=== PATIENT | male | born 1980 | race Caucasian/White ===

== ENCOUNTER 2024-06-26 18:37 | Emergency (ER) | payer OTHER, SELFPAY ==
[2024-06-26 18:47] VITALS: BP 136/88
[2024-06-26 20:12] VITALS: BP 123/66
--- NOTE | 2024-06-26 22:59 | ED.MUSCINJ ---
HPI-Injury
General
Chief Complaint: Musculo-Skeletal Complaint
Source: patient
Exam Limitations: none
Time Seen by Provider: 06/26/24 19:01
Nursing documentation reviewed up to this point in time: agreed with
History of Present Illness-Injury
Is this injury a work related problem?: No
Is pt an associate of [facility]/[place]?: No
Initial Injury comments:
Patient states he snapped his fingers to get his dogs attention and now he is unable to move 3rd finger. He feels that it is dislocated. Incident occurred just TREE [employer]. Brought self to ED
Past History
Past History
ED Past Medical History: GERD, HTN, Other (Pancreatitis, chronic low back pain) and Other (History of opiate abuse)
ED Past Surgical History: Orthopedic (Right knee surgery, right elbow)
Patient has exhibited threatening behavior?: No
Social History
Tobacco: Smoker
Alcohol: Occasional
Drug: Former user
Personal: Single
Living: with family
Employment: Employed
Family History
Family History: Other (Noncontributory)
Review of Systems
Review of Systems
Allergies reviewed?: Yes
All Other Systems: ROS reviewed and negative except as documented in HPI and ROS
Constitutional: Reports no symptoms
Musculoskeletal: Reports joint pain (Unable to straighten right 3rd finger at MCP)
Skin: Reports no symptoms
Neurological: Reports no symptoms
Psychiatric: Reports no symptoms
Musculoskeletal Injury Exam
Musculoskeletal Injury Exam
Right Third Finger:
Pain with Movement?: Moderate
Tender to palpation?: Moderate
Soft tissue swelling?: None
External deformity and angulation?: Moderate
Joint effusion?: None
Contusion?: None
Hematoma-local bleeding into tissue?: None
Strain- Sprain- Tear (Connective tissue injury)?: Moderate
Crepitus with movement?: No
Joint instability?: No
Malalignment/deformity?: No
Range of motion: Limited
Distal skin color and temperature: normal-warm & good color
Capillary Refill: normal
Normal distal neurovascular exam?: Yes
Peripheral Pulses: radial (right): 3+
Phy Exam
General Physical Exam
General Presentation: well appearing and no apparent distress
General age: appears stated age
General Skin: warm and dry
General Habitus: normal
General Mental: alert
Musculoskeletal Exam
Musculoskeletal Exam: neuro vasc intact
Skin Exam
Skin Exam: normal color, warm/dry and no rash
Psychiatric Exam
Psychiatric Exam: normal mood/affect
Injury Course
Orders/Labs/Results
Orders:
Orders
06/26/24 19:09
Hand, Right 3 View [CR Hand - Right Min 3 Views] Urgent
Comment:
Reason For Exam: deformity left 3rd MCP
*Critical Care Note
Total Time (30-74mins, 75-104mins- exclusive of procedures): Not Applicable
Update Note
Update Note:
Digital block with Lidocaine 1% to right 3rd finger. Able to release 'trigger finger' with minimal traction on finger. Now iwth full ROM. He is discharged home, will follow up with ortho. FInger splint applied for comfort.
ED Attending Note
-
Portions of this chart may have been created with voice recognition software.� Occasional wrong word or��sound alike� substitutions may have occurred due to the inherent limitations of voice recognition software.
Discharge Plan
Departure
Patient Disposition: Home (Routine Discharge)
Date of Disposition: 06/26/24
Time of Disposition: 20:02
Patient with high blood pressure during this ER visit?: No
Condition: Good
Covid-19: Not Applicable
Discharge Problem:
Subluxation of finger
Instructions: Muscle and Bone Pain (DC), Ibuprofen
Prescriptions:
No Action
omeprazole 20 MG capsule,delayed release(DR/EC)
10 mg PO DAILY
atenolol 50 MG tablet
50 mg PO DAILY Qty: 20 0RF
nicotine 14 MG patch 24 hour
14 mg transdermal DAILY Qty: 14 0RF
folic acid 1 MG tablet
1 mg PO DAILY Qty: 30 0RF
thiamine HCl (vitamin B1) [Vitamin B-1] 50 MG tablet
50 mg PO DAILY Qty: 30 0RF
ibuprofen 600 MG tablet
600 mg PO QIDPRN PRN (Reason: pain) Qty: 30 0RF
Referrals:
Enrrique Díaz MD [Active] - Next open appointment
Jennifer Abrams PA [Family Provider] -
Interventions
Interventions:
*Risk Screen - Suicide Last Done: 06/26/24 19:20
*General Assessment Last Done: 06/26/24 19:20
*Neglect/Abuse Screening Last Done: 06/26/24 19:20
*ED COVID-19 Vaccine History Last Done: 06/26/24 19:21
*Nursing Disposition Last Done: 06/26/24 20:13
ED-Musculoskeletal Assessment Last Done: 06/26/24 19:15
Discharge Date and Time
Discharge Date/Time: 06/26/24 20:14
Print Language: MEXICAN
== END 2024-06-26 20:14 | disposition home or self-care (01) ==
LOC: EMR 18:37
PROVIDERS: EMERGENCY PHYSICIAN Emergency Medicine; FAMILY PHYSICIAN Physician Assistant
DX: S63.212A Subluxation of metacarpophalangeal joint of right middle finger, initial encounter (principal); X50.1XXA Overexertion from prolonged static or awkward postures, initial encounter; I10 Essential (primary) hypertension; K21.9 Gastro-esophageal reflux disease without esophagitis; F17.200 Nicotine dependence, unspecified, uncomplicated
CPT/HCPCS: 26700; 99283; 73130

== ENCOUNTER 2024-10-16 21:12 | Day surgery (SDC) | payer OTHER, SELFPAY ==
[2024-10-16 16:03] VITALS: BP 135/88
[2024-10-16 16:18] LABS: % Basophils 0.3 % (0-2); % Eosinophils 0.2 % (0-6); % Immature Granulocytes 0.3 % (0-0.5); % Monocytes 3.4 % (1.7-9.3); % Neutrophils 85.8 % (42.2-75.2); Absolute Basophils 0.1 10^3/uL (0-0.2); Absolute Immature Granulocytes 0.1 10^3/uL (0-0.05); Absolute Lymphocytes 1.7 10^3/uL (1.2-3.4); Absolute Monocytes 0.6 10^3/uL (0.1-0.6); Absolute Neutrophils 14.2 10^3/uL (1.4-6.5); Hematocrit 44.8 % (39.0-52.0); Hemoglobin 15.6 g/dL (13.0-18.0); Mean Corp Hgb Conc. 34.8 g/dL (33.0-37.0); Mean Corpuscular Hgb 31.3 pg (27.0-31.0); Mean Corpuscular Volume 89.8 fL (80.0-94.0); Mean Platelet Volume 9.6 fL (7.4-10.4); Nucleated Red Blood Cells % 0 % (-); Platelet Count 266 10^3/uL (130-400); Red Blood Cell Count 4.99 10^6/uL (4.70-6.10); Red Cell Dist. Width 12.1 % (11.5-14.5); White Blood Cell Count 16.6 10^3/uL (4.8-10.8)
[2024-10-16 16:31] LABS: ALT (SGPT) 19 U/L (0-50); AST (SGOT) 21 U/L (17-59); Albumin 4.5 g/dl (3.5-5.0); Alkaline Phosphatase 91 U/L (38-126); Blood Urea Nitrogen 7 mg/dl (9-20); Calcium 9.8 mg/dl (8.4-10.2); Carbon Dioxide 31 mmol/L (22-30); Chloride 100 mmol/L (98-107); Glucose 143 mg/dl (70-99); Lipase 53 U/L (23-300); Potassium 4.7 mmol/L (3.5-5.1); Sodium 137 mmol/L (135-145); Total Bilirubin 0.8 mg/dl (0.2-1.3); Total Protein 7.2 g/dl (6.3-8.2); eGFR > 60.00
--- NOTE | 2024-10-16 16:45 | ED.GENMED ---
History of Present Illness
General
Chief Complaint: Abdominal Pain
Source: patient
Time Seen by Provider: 10/16/24 16:34
History of Present Illness
History of Present Illness:
44-year-old male presents complaining of gradually worsening abdominal pain since this morning. He is nauseous with decreased appetite. The feels better to be curled up in a ball. No urinary symptoms. No fever. No blood in the stool. No other
complaints at this time
Past History
Past History
ED Past Medical History: GERD, HTN, Other (Pancreatitis, chronic low back pain) and Other (History of opiate abuse)
ED Past Surgical History: Orthopedic (Right knee surgery, right elbow)
Patient has exhibited threatening behavior?: No
Social History
Tobacco: Smoker
Alcohol: Occasional
Drug: Former user
Personal: Single
Living: with family
Employment: Employed
Family History
Family History: Other (Noncontributory)
Phy Exam
Physical Exam
Physical Exam:
General: Well-appearing male no acute respiratory distress
HEENT: Normocephalic atraumatic
Heart: Regular rate and rhythm
Lungs: Clear no wheeze
Abdomen soft tender to the right lower quadrant no guarding or rebound normal bowel sounds
Extremities: No cyanosis
Course
Orders/Labs/Results
Orders:
Orders
10/16/24 16:08
Complete Blood Count/With Diff Urgent
Comprehensive Metabolic Panel Urgent
Lipase Urgent
10/16/24 16:39
CT Abd/pelvis W Iv Cont Urgent
Comment:
Reason For Exam: rlq pain
0.9% Sodium Chloride 1000 ml [Nss] 1,000 ml IV BOLUS
Ketorolac [Toradol] 15 mg IV NOW STA
Ondansetron Injectable [Zofran] 4 mg IV NOW STA
10/16/24 19:59
Piperacillin/Tazo 3.375 Gram [Zosyn] 3.375 gram in 50 ml IV NOW
10/16/24 20:12
Ketorolac [Toradol] 15 mg IV NOW STA
Abnormal Lab Results
10/16/24
16:08
WBC 16.6 H 10^3/uL
(4.8-10.8)
MCH 31.3 H pg
(27.0-31.0)
Abs Immat Gran (auto) 0.1 H 10^3/uL
(0-0.05)
Absolute Neuts (auto) 14.2 H 10^3/uL
(1.4-6.5)
Neutrophils % 85.8 H %
(42.2-75.2)
Lymphocytes % 10.0 L %
(20.5-51.1)
Carbon Dioxide 31 H mmol/L
(22-30)
BUN 7 L mg/dl
(9-20)
Glucose 143 H mg/dl
(70-99)
10/16/24 16:08
10/16/24 16:08
Vital Signs
Initial and Last Documented VS:
Initial Vital Signs
Temp Pulse Resp BP Pulse Ox
98.1 F 77 17 135/88 100
10/16/24 16:03 10/16/24 16:03 10/16/24 16:03 10/16/24 16:03 10/16/24 16:03
Last Documented Vital Signs
Temp Pulse Resp BP Pulse Ox
98.1 F 62 18 131/78 98
10/16/24 16:03 10/16/24 18:00 10/16/24 18:00 10/16/24 18:00 10/16/24 18:00
MDM/Problems Addressed
Differential Diagnosis Includes:
Abdominal pain. Consider pancreatitis versus constipation versus appendicitis versus biliary colic
Labs demonstrate leukocytosis with a white blood cell count of 16,000. On exam most tender area is the right lower abdomen. He is nauseous and having trouble tolerating orals. Will order CT with IV only contrast. Toradol Zofran fluids ordered
*Critical Care Note
Total Time (30-74mins, 75-104mins- exclusive of procedures): Not Applicable
Update Note
Update Note:
CT consistent with acute appendicitis. No evidence of rupture or abscess. Chest with general surgery, Dr. Reyes. Will admit to house nurse practitioner under Dr. Reyes. Zosyn ordered
ED Attending Note
-
Portions of this chart may have been created with voice recognition software.� Occasional wrong word or��sound alike� substitutions may have occurred due to the inherent limitations of voice recognition software.
Discharge Plan
Departure
Patient Disposition: Admit
Date of Disposition: 10/16/24
Time of Disposition: 20:12
Presentation/result/management discussed w/ accepting MD/DO: Dr. Reyes
Discharge Problem:
Acute appendicitis
Prescriptions:
No Action
omeprazole 20 MG capsule,delayed release(DR/EC)
10 mg PO DAILY
atenolol 50 MG tablet
50 mg PO DAILY Qty: 20 0RF
nicotine 14 MG patch 24 hour
14 mg transdermal DAILY Qty: 14 0RF
folic acid 1 MG tablet
1 mg PO DAILY Qty: 30 0RF
thiamine HCl (vitamin B1) [Vitamin B-1] 50 MG tablet
50 mg PO DAILY Qty: 30 0RF
ibuprofen 600 MG tablet
600 mg PO QIDPRN PRN (Reason: pain) Qty: 30 0RF
Referrals:
Jennifer Abrams PA [Family Provider] -
Interventions
Interventions:
*Risk Screen - Suicide Last Done: 10/16/24 16:04
*General Assessment Last Done: 10/16/24 16:04
*Neglect/Abuse Screening Last Done: 10/16/24 16:04
*ED- Fall Risk Assessment Last Done: 10/16/24 19:46
*ED COVID-19 Vaccine History Last Done: 10/16/24 16:04
DD-Ddahkd-Upkynkmjar Assessment Last Done: 10/16/24 18:00
Discharge Date and Time
Print Language: KAZAKH
[2024-10-16 16:53] VITALS: BMI 25.7
[2024-10-16] MEDS: ZOFRAN 4 MG IV (17:02)
[2024-10-16] MEDS: TORADOL 15 MG IV ×2 (17:02→20:36)
[2024-10-16] MEDS: NSS 1000 IV ×2 (17:02→22:40)
[2024-10-16 18:00] VITALS: BP 131/78
[2024-10-16] MEDS: ZOSYN 50 IV (20:36)
--- NOTE | 2024-10-16 21:32 | HPS.HSE ---
Addendum entered and electronically signed by Macho Calabrese MD 10/17/24 08:31:
I saw and examined the patient independently.
The Commercial Hvac Service Technician's note was reviewed and I agree with the note, assessment and plan except where noted below.
Comment: This is a 44-year-old male who presents with a 1 day history of right lower quadrant abdominal pain. Exam, imaging, blood work all consistent with acute appendicitis.
Will plan for a laparoscopic appendectomy in the OR today.
N.p.o., IV fluids, IV antibiotics.
Risks/Benefits/Alternatives, expected postoperative course and possible complications (bleeding, infection, injury to surrounding structures, acute/chronic pain) discussed at length. Patient wishes to proceed with surgery. All questions answered.
Consent obtained.
I spent 60 minutes in total for the care of this patient today including direct patient care and counseling, reviewing labs, imaging, coordination of care, as well as documentation.
Original Note:
Family Physician
-
Family Physician: ADRIENNE Huertas
Chief Complaint
-
abdominal pain
History of Present Illness
44 year old male who went to [facility] for coffee this morning at about 0900 and by 1100 he started to feel unwell with vague abdominal pain which became progressively worse until he arrived here about 1500 today. Movement makes pain worse along with
intermittent nausea without vomiting. He relayed to ED about curling up in a ball was helpful for pain relief. Denies WATERS, fever, chills, night sweats, SOB, CP or lower extremity discomfort. PMH includes GERD, HTN, nicotine patch, previoius etoh and
narcotic dependence, pancreatitis (due to etoh in past), chronic lower back pain with hx of right knee and right elbow surgery.
Medical History
Past Medical History
Past Medical History: Reports GERD, HTN and Other (chronic lower back pain, pancreatitis, hx of opiate/etoh abuse)
Past Surgical History: Reports Orthopedic (right elbow and right knee)
Social History
Tobacco: Smoker (reduced amount smoked and uses nicotine patch)
Alcohol: Occasional
Drug: Former User and Narcotics
Personal: Single
Living: With Family
Employment: Employed
Family History
Family History: Not pertinent
Allergies / Home Medications
Allergies reflects when Allergies were last updated in [facility].
Home Medications with original date entered in [facility]
Allergy/Medication List:
Allergies
Allergy/AdvReac Type Severity Reaction Status Date / Time
No Known Allergies Allergy Verified 10/16/24 16:04
Home Medications
omeprazole 20 mg capsule,delayed release 10 mg PO DAILY 04/04/17
atenolol 50 mg tablet 50 mg PO DAILY ##20 04/06/17
folic acid 1 mg tablet 1 mg PO DAILY #30 tabs 10/11/18
nicotine 14 mg/24 hr daily transdermal patch 14 mg transdermal DAILY ##14 10/11/18
thiamine HCl (vitamin B1) 50 mg tablet (Vitamin B-1) 50 mg PO DAILY #30 tabs 10/11/18
ibuprofen 600 mg tablet 600 mg PO QIDPRN PRN pain #30 tabs 12/10/21
Review of Systems
-
A 12 point ROS was completed and negative except as noted: Yes
Constitutional: Reports No Symptoms
EENT: Reports No Symptoms
Respiratory: Reports No Symptoms
Cardiac: Reports No Symptoms
Abdomen/GI: Reports Abdominal Pain and Nausea
: Reports No Symptoms
Musculoskeletal: Reports No Symptoms
Skin: Reports No Symptoms
Neurological: Reports No Symptoms
Endocrine: Reports No Symptoms
Hematologic/Lymphatic: Reports No Symptoms
Psych: Reports No Symptoms
Physical Exam
Vital Signs
Vital Signs
Temp Pulse Resp BP Pulse Ox
98.1 F 62 18 131/78 98
10/16/24 16:03 10/16/24 18:00 10/16/24 18:00 10/16/24 18:00 10/16/24 18:00
Physical Exam
General: Well Developed, Well Nourished, No Apparent Distress, Comfortable and Conversant
HEENT: NormoCephalic, Moist mucous membranes and Atraumatic
Respiratory: Clear and Non Labored Respirations
Cardiac: S1/S2 and Regular Rhythm
Breast: Deferred by me
GI: Soft, Normal Bowel Sounds and Distended
Rectal: Deferred by Provider
Genito-urinary: Clear Urine
Musculoskeletal: No Clubbing, No Cyanosis and No Edema
Skin: Warm and Dry
Neuro: Alert, Oriented, AO x 3, No Motor Deficits and Nonfocal/grossly intact
Hematologic/Lymphatic: No Lymphadenopathy
Psych: Calm
Laboratory Results
-
10/16/24 16:08
10/16/24 16:08
Laboratory Results
Total Bilirubin 0.8 mg/dl (0.2-1.3) 10/16/24 16:08
AST 21 U/L (17-59) 10/16/24 16:08
ALT 19 U/L (0-50) 10/16/24 16:08
Alkaline Phosphatase 91 U/L (38-126) 10/16/24 16:08
Lipase 53 U/L (23-300) 10/16/24 16:08
Data Reviewed
-
Diagnostic Radiology: Report Reviewed by me
Lab Data: Labs Reviewed by me
Old Records: Reviewed
Impression/Plan
-
IMPRESSION: acute appendicitis
PLAN: 44 year old male who went to [facility] for coffee this morning at about 0900 and by 1100 he started to feel unwell with vague abdominal pain which became progressively worse until he arrived here about 1500 today. Movement makes pain worse along
with intermittent nausea without vomiting. He relayed to ED about curling up in a ball was helpful for pain relief. Denies WATERS, fever, chills, night sweats, SOB, CP or lower extremity discomfort. PMH includes GERD, HTN, nicotine patch, previoius etoh
and narcotic dependence, pancreatitis (due to etoh in past), chronic lower back pain with hx of right knee and right elbow surgery. He would like to play golf on Thursday. He will discuss with surgery in am.
*Acute appendicitis: Zosyn IV, NS IVF, Zofran nausea, NPO
*Hx Opiate abuse: Will use ofirmiv IV prn for pain to avoid narcotic use as best we can to offer relief.
*Nicotine dependence: resume nicotine patch post op
*HTN: Trend. Restart atenolol daily at discharge.
*Hx ETOH abuse: Resume thiamine and folic acid at dc. Encourage moderation.
*GERD: Omeprazole
*Chronic lower back pain: Ibuprofen prn after dc.
*DVT prophylaxis: ambulate, TEDS, SCDs
*Disposition: Dr. Reyes General surgery service.
[2024-10-16 22:20] VITALS: BP 157/96
[2024-10-16] MEDS: OFIRMEV 100 IV (23:10)
[2024-10-16 23:25] VITALS: BP 139/90
[2024-10-17] VITALS (12 sets, daily range): BP systolic 116–169; BP diastolic 73–115; BMI 25.8; BMI 25.9
[2024-10-17] MEDS: MELATONIN 5 MG PO (02:08)
[2024-10-17] MEDS: ZOSYN 50 IV ×3 (02:08→14:52)
[2024-10-17] MEDS: DILAUDID 0.25 MG IV ×2 (02:09→07:59)
--- NOTE | 2024-10-17 04:20 | PTCARENOTE ---
Patient received from ED and was oriented to room and surroundings. IVF and IV ABX per order
[2024-10-17 06:50] LABS: % Basophils 0.2 % (0-2); % Eosinophils 0.1 % (0-6); % Immature Granulocytes 0.6 % (0-0.5); % Lymphocytes 8.4 % (20.5-51.1); % Monocytes 7.1 % (1.7-9.3); % Neutrophils 83.6 % (42.2-75.2); Absolute Immature Granulocytes 0.1 10^3/uL (0-0.05); Absolute Lymphocytes 1.6 10^3/uL (1.2-3.4); Absolute Monocytes 1.3 10^3/uL (0.1-0.6); Absolute Neutrophils 15.7 10^3/uL (1.4-6.5); Hematocrit 41.5 % (39.0-52.0); Hemoglobin 14.6 g/dL (13.0-18.0); Mean Corp Hgb Conc. 35.2 g/dL (33.0-37.0); Mean Corpuscular Hgb 31.5 pg (27.0-31.0); Mean Corpuscular Volume 89.4 fL (80.0-94.0); Mean Platelet Volume 9.5 fL (7.4-10.4); Nucleated Red Blood Cells % 0 % (-); Platelet Count 203 10^3/uL (130-400); Red Blood Cell Count 4.64 10^6/uL (4.70-6.10); Red Cell Dist. Width 11.9 % (11.5-14.5); White Blood Cell Count 18.8 10^3/uL (4.8-10.8)
[2024-10-17 06:52] LABS: INR 0.95
[2024-10-17 06:53] LABS: APTT 28.8 Sec (23.4-35.0)
[2024-10-17 07:07] LABS: Blood Urea Nitrogen 7 mg/dl (9-20); Calcium 9.2 mg/dl (8.4-10.2); Carbon Dioxide 26 mmol/L (22-30); Chloride 104 mmol/L (98-107); Estimated Creatinine Clearance > 125 ml/min; Glucose 127 mg/dl (70-99); Potassium 4.3 mmol/L (3.5-5.1); Sodium 136 mmol/L (135-145); eGFR > 60.00
--- NOTE | 2024-10-17 08:32 | W.SUR.PREOP ---
Pre-Operative Surgical Note
-
I have examined this patient prior to the performance of the scheduled procedure.
The patient's condition is unchanged from the time of the current History and
Physical and the patient is able to undergo the scheduled procedure.
--- NOTE | 2024-10-17 10:46 | CM ---
Addendum entered by Cristina Xie 10/17/24 15:01:
Patient for change to [facility] per physician. Patient for discharge home and stated that he has no needs at this time.
Original Note:
Patient seen at bedside, Patient stated that he lives with his parents in a 2 story home Patient with no DME at this time. Patient PCP is Dr. Ramey and he uses the [facility] on [facility]. Patient plan is for home with no needs. Patient for
surgery at this time. CM provided OBS form and reviewed form. Patient to sign after he reviews it and requested to do so after surgery. CM will continue to follow for discharge planning needs.
Plan; home with no needs following surgery.
--- NOTE | 2024-10-17 11:42 | W.IMMPOSTOP ---
Surgical Immed Post Op Note
-
Primary Surgeon: Macho Calabrese MD
Assisting Surgeon: None
Pre-op Diagnosis: Acute appendicitis
Post-op Diagnosis: Same
Procedure Performed: Laparoscopic appendectomy
Anesthesia Type: General
Specimen / Cultures: Appendix
Estimated Blood Loss: 3 cc
Complications: None
Operative Findings: Suppurative and inflamed but not perforated appendicitis. X3 5 mm port appendectomy. Mesentery taken with the bipolar energy device. Base taken with a 0 PDS Endoloop x 2.
POST OP PLAN:
Imaging: None
Labs: Routine AM
Diet: Advance to Regular as tolerated
Analgesia: Tylenol 650mg q6 Nils, Martha 5mg q6 PRN, Dilaudid 0.5mg q2h PRN
Neuro/vascular checks: q4h
AC/AP: Hold Therapeutic AC, Ok for DVT PPx
Activity: Ad Benita
Wound/Incisions/Drains: Routine
Abx: Can continue while admitted
Dispo: RNF, anticipate discharge home later today pending clinical course of pain medication given his history with narcotic abuse.
--- NOTE | 2024-10-17 11:43 | OR.RPT ---
Operative Report
Operative Report
Patient Name: Magen Vides
: 1980
Date of Operation: 10/17/2024
Preoperative Diagnosis: Acute Appendicitis
Postoperative Diagnosis: Same
Procedure(s):
Laparoscopic Appendectomy
Surgeon(s):
Dr. Calabrese
Electrotype Caster(s):
CHARLEY Gay
Anesthesia: General
Estimated Blood Loss: 3 cc
Urine Output: None
Drains/Lines/Implants: None
Specimens:
1. Appendix
HPI/Surgical Indications:
This is a 44-year-old male who presents with a 1 day history of abdominal pain. Exam, labs and imaging are consistent with acute appendicitis. Risks/Benefits/Alternatives were discussed at length, and the patient agreed to proceed with surgery.
Operative Findings:
Suppurative and inflamed but not perforated appendicitis. X3 5 mm port appendectomy. Mesentery taken with the bipolar energy device. Base taken with a 0 PDS Endoloop x 2.
Procedure Description:
The patient was placed in the supine position, with the left arm tucked, and general anesthesia was induced. The abdomen was prepared and draped in a sterile fashion so as to expose the entire abdomen. A surgical time out was taken. Abdominal access
was obtained with a left upper quadrant Veress entry which required a single pass followed by a left lower quadrant 5 mm Optiview trocar. After confirming no injury on entrance, two additional 5mm ports were placed in the suprapubic area just off
midline and in the left lower quadrant. The patient was placed in Trendelenberg with the right side slightly up . The appendix was identified and a window was created in the mesoappendix. The appendix was suppurative and inflamed but not perforated.
Using a laparoscopic bipolar energy device, the meso appendix was divided. The base of the appendix appeared uninvolved and was ligated/divided using two 0-PDS Endoloops and the energy device. The appendix was placed in a specimen retrieval bag.
Hemostasis was confirmed and the ports were removed under visualization. The specimen was passed off the field. The umbilical port was closed with a [id number] 0-PDS and the skin for all three ports was closed with interrupted monocryls and
covered with dermabond. The patient was awoken from anesthesia in good condition and transported to the recovery area.
I was the attending physician and performed the procedure with assistance from the SHIPPING SUPERVISOR above. I was present for all portions of the case excluding skin closure.
Macho Calabrese MD
--- NOTE | 2024-10-17 12:54 | PTCARENOTE ---
Pt returned from OR s/p lap appy, ebl 3 cc. VSS, pt reports pain 2/10, 3 lap sites glued and intact. Pt encouraged to order lunch. Will closely monitor.
[2024-10-17] MEDS: NSS IV (15:00)
== END 2024-10-17 16:05 | disposition home or self-care (01) ==
LOC: SDS 21:12
PROVIDERS: Surgery; EMERGENCY PHYSICIAN Emergency Medicine; FAMILY PHYSICIAN Physician Assistant
DX: K35.80 Unspecified acute appendicitis (principal); R10.9 Unspecified abdominal pain; K21.9 Gastro-esophageal reflux disease without esophagitis; I10 Essential (primary) hypertension; G89.29 Other chronic pain; M54.50 Low back pain, unspecified; F17.200 Nicotine dependence, unspecified, uncomplicated; F11.21 Opioid dependence, in remission; F10.21 Alcohol dependence, in remission; Z87.19 Personal history of other diseases of the digestive system; Z79.899 Other long term (current) drug therapy
CPT/HCPCS: 44970; 74177; 88304; 80048; 80053; 83690; 85025; 85610; 85730; 86850; 86900; 86901; 96361; 96374; 96375; 96376; 99285; 99406; C1776; G0378; Q9967

== ENCOUNTER → 2025-05-23 07:55 | Outpatient (REF) | payer OTHER, SELFPAY ==
[2025-05-23 08:57] LABS: Hematocrit 40.0 % (39.0-52.0); Hemoglobin 13.7 g/dL (13.0-18.0); Mean Corp Hgb Conc. 34.3 g/dL (33.0-37.0); Mean Corpuscular Volume 92.8 fL (80.0-94.0); Nucleated Red Blood Cells % 0 % (-); Platelet Count 253 10^3/uL (130-400); Red Cell Dist. Width 12.1 % (11.5-14.5)
[2025-05-23 09:28] LABS: Blood Urea Nitrogen 18 mg/dl (9-20); Calcium 9.3 mg/dl (8.4-10.2); Carbon Dioxide 29 mmol/L (22-30); Chloride 103 mmol/L (98-107); Glucose 129 mg/dl (70-99); Potassium 3.8 mmol/L (3.5-5.1); Sodium 136 mmol/L (135-145); eGFR > 60.00
== END ==
LOC: RCS 07:55
PROVIDERS: ATTENDING PHYSICIAN Orthopaedic Surgery; FAMILY PHYSICIAN Physician Assistant
DX: Z01.818 Encounter for other preprocedural examination (principal)
CPT/HCPCS: 36415; 80048; 85025; 93005

== ENCOUNTER 2025-06-30 06:57 | Outpatient (RCR) | payer OTHER, SELFPAY | END 2025-06-30 23:59 | disposition home or self-care (01) | LOC: RPT 06:57 | PROVIDERS: ATTENDING PHYSICIAN Orthopaedic Surgery; FAMILY PHYSICIAN Physician Assistant | DX: Z47.1 Aftercare following joint replacement surgery (principal); M17.11 Unilateral primary osteoarthritis, right knee; R26.89 Other abnormalities of gait and mobility; Z73.6 Limitation of activities due to disability; M25.561 Pain in right knee; M62.81 Muscle weakness (generalized); Z96.651 Presence of right artificial knee joint | CPT/HCPCS: 97010; 97110; 97112; 97116; 97140; 97161; 97530 ==

== ENCOUNTER 2025-07-31 16:56 | Outpatient (RCR) | payer OTHER, SELFPAY | END 2025-07-31 23:59 | disposition home or self-care (01) | LOC: RPT 16:56 | PROVIDERS: ATTENDING PHYSICIAN Orthopaedic Surgery; FAMILY PHYSICIAN Physician Assistant | DX: Z47.1 Aftercare following joint replacement surgery (principal); M17.11 Unilateral primary osteoarthritis, right knee; Z73.6 Limitation of activities due to disability; R26.89 Other abnormalities of gait and mobility; M25.561 Pain in right knee; M62.81 Muscle weakness (generalized); Z96.651 Presence of right artificial knee joint | CPT/HCPCS: 97110; 97112; 97140; 97530 ==